=== PATIENT | female | born 1960 | race African-American/Black ===

== ENCOUNTER 2016-12-29 11:25 | Day surgery (SDC) | payer MEDICARE ==
[2016-12-24 11:00] LABS: HEMATOCRIT 37.4 % (36.0-48.0); HEMOGLOBIN 12.1 g/dL (12.0-16.0)
[2016-12-24 11:15] LABS: CALCIUM, SERUM 9.5 MG/DL (8.5-10.4); CHLORIDE, SERUM 107 MMOL/L (96-112); CO2 (CARBON DIOXIDE) 32 MMOL/L (24-34); CREATININE 0.75 MG/DL (0.55-1.02); GFR AFRICAN AMERICAN 103 ML/MIN (>=60); GFR NON AFRICAN AMERICAN 88 ML/MIN (>=60); GLUCOSE, SERUM 107 MG/DL (60-99); POTASSIUM, SERUM 3.8 MMOL/L (3.5-5.3); SODIUM, SERUM 145 MMOL/L (135-148)
[2016-12-24 11:24] LABS: BUN (BLOOD UREA NITROGEN) 10 MG/DL (6-23)
--- NOTE | ~2016-12-29 | OP ---
Record Of Operation [facility] [address] [place]. [address] NAME: KENDALL WASHBURN : 58 STATUS : [facility]#: [id number] AGE: 56 ADM/REG DATE : 12/29/16 MR#: [id number] REPORT SERV DATE: 12/29/16 DICTATED BY: MAGDA HOWARD DATE: 12/29/16 REPORT STATUS : Draft TRANSCRIBED BY: MODManju DATE: 12/29/16 DATE OF PROCEDURE: 12/29/2016 PREOPERATIVE DIAGNOSES: 1. Bilateral chronic ethmoid sinusitis. 2. Bilateral chronic maxillary sinusitis. 3. Bilateral chronic sphenoid sinusitis. 4. Right sphenoid sinus mucocele. 5. Right nasal polyps. 6. Right middle turbinate shania bulla. POSTOPERATIVE DIAGNOSES: 1. Bilateral chronic ethmoid sinusitis. 2. Bilateral chronic maxillary sinusitis. 3. Bilateral chronic sphenoid sinusitis. 4. Right sphenoid sinus mucocele. 5. Right nasal polyps. 6. Right middle turbinate shania bulla. PROCEDURE: 1. Bilateral total ethmoidectomy. 2. Bilateral maxillary sinusectomy. 3. Bilateral sphenoidectomy, with tissue removal. 4. Polypectomy, right. 5. Right shania bullectomy. 6. Use of intracranial navigation system. HISTORY: Kendall is a 56-year-old female with a long history of chronic sinusitis and chronic pain, nonresponsive to the use of antibiotics. Her chronic sinusitis continues and she had significant findings on the scan. I counseled her about the risks, benefits, and alternatives of this procedure. The risks include, but are not limited to pain, bleeding, infection, and scarring. I also quoted her a 15% chance for revision sinus surgery at some point. She voiced an understanding of those risks and signed a consent form. PROCEDURE IN DETAIL: Kendall was brought to the operating room and positioned on the table in a supine manner. General endotracheal anesthesia was induced. The table was rotated 180 degrees. The patient was prepped and draped in the usual fashion. The sinus navigation system was initialized according to protocol and the insurance follow up representative was in the room with us when we were doing that. It seemed to be performing normally when we checked it and we rechecked that throughout the case and it operated just fine. 0.5 x 3 cotton pledgets were packed into the nasal cavities bilaterally and left in place for 3 minutes, these were then removed and under direct vision with the 0-degree sinus endoscope viewed from the TV camera, we placed a pack up in the middle meatus bilaterally. After 3 minutes, we removed the pack from the left side. The middle turbinate on the left side was a medialized, the uncinate process was back Record Of Operation [address] [place]. [address] NAME: KENDALL WASHBURN : 58 STATUS : [facility] PAT#: [id number] AGE: 56 ADM/REG DATE : 12/29/16 MR#: [id number] REPORT SERV DATE: 12/29/16 DICTATED BY: MAGDA HOWARD DATE: 12/29/16 REPORT STATUS : Draft TRANSCRIBED BY: KOURTNEY DATE: 12/29/16 elevated toward the surgeon with the sinus probe. We used the backbiter to remove most of the uncinate process and the sinus shaver to trim that up a bit. Total ethmoidectomy was performed preserving the middle and superior turbinates, the fovea ethmoidalis and the lamina papyracea. Once we had the ethmoid air cells well opened up, we switched to the 30 degree sinus endoscope, the curved suction and the curved sinus shaver and I came back along the roof of the ethmoid sinus and cleaned that up nicely up into the agger nasi area and we had an excellent opening up into the left frontal sinus and we were finished. We then turned back to the sphenoethmoid recess and opened the natural ostia of the left sphenoid sinus with the suction and then enlarged that with the sinus shaver and the back-biting forceps and finally trimmed that a bit with the sinus shaver. I placed packs on this side to help with hemostasis while similar procedures were performed on the right. In the beginning on the right side, we opened up the shania bulla with the sickle knife and bivalved this. The lateral leaf of the shania bulla was then removed with the Mushtaq-Cut forceps and we left the medial leaf of that in place. We likewise removed the uncinate, did the ethmoidectomy and maxillary sinus procedures in a manner identical to the left side. We identified the natural ostia of the sphenoid sinus on the left side and had to remove a superior meatus polyp before we were able to do that. The natural ostia were opened significantly first with the navigating suction, then with the sinus shaver and the Mushtaq-Cut forceps. The large sphenoid sinus mucocele was removed in its entirety and we had a nice wide sphenoidotomy at the end of this procedure. We also went back in through the ethmoid and made sure that we had opened through the posterior ethmoid cells and the sphenoid as well. Following this, the right side was thoroughly irrigated. We placed some packs in there as we did on the left side. All the packs were taken out on the left side. We irrigated that out one more time and suctioned out all fluids and clots. We placed the large Propel sinus stent in the ethmoid position and placed some Surgiflo in the sphenoethmoid recess and into the ethmoid cavity. We did the same thing on the right side, and after waiting about 5 minutes, we irrigated out most of the Surgiflo and no additional bleeding was identified. The cavities were really quite dry on both sides. We suctioned out the nasal cavity and the nasopharynx. A drip pad was placed. The patient was returned to anesthesia control. She was extubated in the operating room and moved to the recovery room in good position. FINDINGS: 1. Estimated blood loss; 30 mL. 2. Total fluids given; 750 mL of Ringer's lactate. 3. Significant chronic sinusitis bilaterally, worse on the right. 4. Right superior meatus nasal polyp. 5. Right sphenoid sinus mucocele. 6. Shania bulla present in the right middle turbinate, which was removed in the usual fashion. 7. The patient's vision was normal in the recovery room at the end of the procedure. FLOWER/MODL Record Of [address] [place]. [address] NAME: KENDALL WASHBURN : 58 STATUS : [facility]#: [id number] AGE: 56 ADM/REG DATE : 12/29/16 MR#: [id number] REPORT SERV DATE: 12/29/16 DICTATED BY: MAGDA HOWARD DATE: 12/29/16 REPORT STATUS : Draft TRANSCRIBED BY: KOURTNEY DATE: 12/29/16 Magda Howard M.D. / [id number] CC: Magda Howard M.D.
[~2016-12-29 11:25] MED LIST: BEN25 PO; CAT1 PO; HYDROCHLOROT12.5 MG PO; NORV10 PO; PRIN20 PO; VOLT75 PO; ZYRTEC ALLGY10 MG PO
== END 2016-12-29 19:02 | disposition home or self-care (01) ==
LOC: SDC 11:25
PROVIDERS: Otolaryngology
PROC: 09TX4ZZ Resection of Left Sphenoid Sinus, Percutaneous Endoscopic Approach (ICD-10-PCS; 2016-12-29)
PROC: 09TW4ZZ Resection of Right Sphenoid Sinus, Percutaneous Endoscopic Approach (ICD-10-PCS; 2016-12-29)
PROC: 09TR4ZZ Resection of Left Maxillary Sinus, Percutaneous Endoscopic Approach (ICD-10-PCS; 2016-12-29)
PROC: 09TQ4ZZ Resection of Right Maxillary Sinus, Percutaneous Endoscopic Approach (ICD-10-PCS; 2016-12-29)
PROC: 09TL8ZZ Resection of Nasal Turbinate, Via Natural or Artificial Opening Endoscopic (ICD-10-PCS; 2016-12-29)
PROC: 09TV4ZZ Resection of Left Ethmoid Sinus, Percutaneous Endoscopic Approach (ICD-10-PCS; principal; 2016-12-29 12:45)
PROC: 09TU4ZZ Resection of Right Ethmoid Sinus, Percutaneous Endoscopic Approach (ICD-10-PCS; 2016-12-29 12:45)
DX: J32.8 Other chronic sinusitis (principal); I10 Essential (primary) hypertension; J34.1 Cyst and mucocele of nose and nasal sinus; J33.9 Nasal polyp, unspecified; E66.01 Morbid (severe) obesity due to excess calories; K21.9 Gastro-esophageal reflux disease without esophagitis; M19.90 Unspecified osteoarthritis, unspecified site; Z68.42 Body mass index [BMI] 45.0-49.9, adult; Z88.1 Allergy status to other antibiotic agents; Z88.5 Allergy status to narcotic agent; Z88.8 Allergy status to other drugs, medicaments and biological substances; Z90.710 Acquired absence of both cervix and uterus; Z79.899 Other long term (current) drug therapy
CPT/HCPCS: 80048; 85014; 85018; 88305; 93005; A9270-GY; C2625; J0330; J1170; J2250; J2270; J2710; J3010